=== PATIENT | female | born 1955 | race Caucasian/White ===

== ENCOUNTER 2020-05-24 11:53 | Outpatient (CLI) | payer BC, SELFPAY ==
--- NOTE | 2020-05-24 11:15 | DI.RAD_ITS ---
EXAM: XR SHOULDER RT COMPLETE 2+V CLINICAL HISTORY: right shoulder pain. TECHNIQUE: 2D digital imaging was performed. COMPARISON: No exams were available for comparison FINDINGS: BONES: No acute fracture is present. No bony destructive lesion is seen. There is prominent spurring at the undersurface of the acromion. Spurring is also seen from the AC joint and greater tuberosity. There is mild narrowing of the glenohumeral joint and mild glenoid spurring. There is spurring at the margin of the humeral head. JOINTS: No dislocation present. There is narrowing of the normal acromial humeral distance which coul d indicate chronic rotator cuff tear. SOFT TISSUE: Normal. IMPRESSION: Degenerative changes and question of chronic rotator cuff tear. DATA REPOSITORY: RADIATION DOSE DELIVERED:
== END 2020-05-24 12:13 ==
PROVIDERS: PCP Physician Assistant; Referring Provider Physician Assistant; Visit Provider Student in an Organized Health Care Education/Training Program
DX: M19.011 Primary osteoarthritis, right shoulder (principal)
CPT/HCPCS: 73030

== ENCOUNTER 2020-06-08 01:37 | Outpatient (CLI) | payer BC, SELFPAY ==
--- NOTE | 2020-06-08 15:40 | DI.MRI_ITS ---
EXAM: MR UPPER JOINT RT WO CLINICAL HISTORY: R SHOULDER PAIN,IMPINGEMENT SYNDROME,TENDONITIS,RT ROTATOR CUFF TEAR. TECHNIQUE: Multiplanar multisequence MRI was performed. CONTRAST MATERIAL: Noncontrast COMPARISON: Plain films dated 24 May 2020 FINDINGS: There is prominent inferior spurring of the AC joint. There is spurring at the tip of the acromion. There is a full-thickness tear of the supraspinatus tendon with retraction to the level of the tip o f the acromion. There is moderate muscular atrophy, Goutallier classification grade III. There is s ome fluid distally in insert infraspinatus tendon but no visible tear. There is mild atrophy of the infraspinatus muscle. There is fluid in the subacromial subdeltoid bursa as well as coracoid bursa. Small amount of fluid is seen in the glenohumeral joint. The subscapularis and teres minor tendons appear intact. The long head of the biceps tendon is normally position. There is some high signal i n the humeral head likely reflecting degenerative changes. There is spurring at the greater and less er tuberosities. No gross labral tear is seen. IMPRESSION: Full-thickness tear with retraction of the supraspinatus tendon and moderate muscle atrophy. Infrasp inatus tendinosis with mild muscle atrophy. Degenerative changes. DATA REPOSITORY:
== END 2020-06-08 01:57 ==
PROVIDERS: PCP Physician Assistant; Visit Provider Student in an Organized Health Care Education/Training Program
DX: M75.121 Complete rotator cuff tear or rupture of right shoulder, not specified as traumatic (principal); M75.41 Impingement syndrome of right shoulder; M77.8 Other enthesopathies, not elsewhere classified; M19.011 Primary osteoarthritis, right shoulder
CPT/HCPCS: 73221